=== PATIENT | female | born 1985 | race African-American/Black ===

== ENCOUNTER 2021-01-21 09:00 | Emergency (ER) | payer SELFPAY ==
[~2021-01-21] VITALS: Ht 160 cm; Wt 54.5 kg
--- NOTE | 2021-01-21 09:13 | NUR ---
PT BIB [facility] AFTER BEING FOUND IN CAR IN [place] NOT BREATHING. SHE WAS GIVEN NARCAN WITH POSITIVE RESPONSE. NO NEEDLES WERE FOUND IN CAR BUT EMPTY ALCOHOL BOTTLES WERE FOUND IN CAR. PT IS RESPONSIVE TO VERBAL STIMULI. CHART UP FOR .
[2021-01-21] MEDS ORDERED: NALOXONE 1 MG/ML, 2ML ONE (09:20)
[2021-01-21 10:43] LABS: AMPHETAMINE SCREEN, URINE Negative (Negative); BARBITURATE SCREEN, URINE Negative (Negative); BENZODIAZEPINE SCREEN, URINE Negative (Negative); CANNABINOID SCREEN, URINE Positive (Negative); COCAINE SCREEN, URINE Positive (Negative); METHADONE SCREEN, URINE Negative (Negative); OPIATE SCREEN, URINE Negative (Negative)
--- NOTE | 2021-01-21 11:45 | NUR ---
PT REFUSED BLOODWORK SEVERAL TIMES. DR. HOLLEY AWARE. PT IS BEING OBSERVED AT THIS POINT UNITL SHE IS SAFWE FOR DC. SHE FELL ASLEEP EARLIER ATTEMPTING TO GET RIDE BY USING HER PHONE. SHE HAS DESATED TO MID 80'S ON RA AND PLACED ON OXYGEN.
[2021-01-21] MEDS ORDERED: ONDANSETRON 2MG/ML, 2ML ONE (14:41)
--- NOTE | 2021-01-21 14:45 | NUR ---
PT MEDICATED FOR NAUSEA AFTER WAKING WITH NAUSEA. PT REPORTS WANTING TO WALK TO [facility] TO GET HER CAR ONCE HER NAUSEA IS CONTROLLED. HER PHONE IS NOT WORKING AND SHE DOES NOT REMEMBER PHONE NUMBER TO CALL RIDE.
[2021-01-21] MEDS ORDERED: ONDANSETRON 2MG/ML, 2ML IVPush ONE (15:00)
--- NOTE | 2021-01-21 15:03 | NUR ---
Report received from BENNETT Soto. Assuming care of pt at this time.
--- NOTE | 2021-01-21 15:12 | NUR ---
REPORT TO YOVANI GUAJARDO.
[2021-01-21 16:01] VITALS: BP 96/72
--- NOTE | 2021-01-21 16:52 | NUR ---
pt resting in bed, tolerating PO fluids, vss, nadn. updated with plan to discharge, pt educated not to drive today, pt agrees.
--- NOTE | 2021-01-21 17:51 | NUR ---
pt ambulatory with day gait, Dr. Deleon notified. awaiting dc paperwork
--- NOTE | 2021-01-21 18:47 | NUR ---
PT EDUCATED ON DC INSTRUCTIONS, PROVIDED WITH TAXI VOUCHER, AMBULATORY TO DC DESK WITH STEADY GAIT ACCOMPANIED BY EDT
== END 2021-01-21 18:54 | disposition home or self-care (01) ==
LOC: ED 09:38
DX: R41.82 Altered mental status, unspecified (principal); R53.83 Other fatigue; F14.10 Cocaine abuse, uncomplicated
CPT/HCPCS: 80307; 96374; 99283; J2405